=== PATIENT | female | born 1995 | race Caucasian/White ===

== ENCOUNTER 2017-09-12 00:11 | Inpatient (IN) | payer MEDICAID ==
[2017-09-12] MEDS ORDERED: Sodium Chloride 0.9% 10 ML Syringe FLUSH PRN (20:36)
[2017-09-12] MEDS ORDERED: Oxytocin/Lactated Ringers 10 UNIT/1,000 ML BAG IV SCH (20:45)
[2017-09-12] MEDS: Misoprostol 100 MCG Tab VAG SCH (21:47)
[2017-09-13] MEDS ORDERED: Oxytocin/Lactated Ringers 20 UNIT/1,000 ML BAG IV ONE (02:07)
[2017-09-13] MEDS: Lactated Ringers 1,000 ML IV SCH ×4 (02:22→16:18)
[2017-09-13] MEDS ORDERED: ePHEDrine 50 MG/ML SDV IVPUSH PRN (08:26)
[2017-09-13] MEDS ORDERED: fentaNYL 100 MCG/2 ML SDV EPIDUR PRN (08:26)
[2017-09-13] MEDS ORDERED: diphenhydrAMINE 50 MG/ML SDV IVPUSH PRN (08:26)
[2017-09-13] MEDS ORDERED: Bupivacaine/fentaNYL/NS 100 ML Bag EPIDUR SCH (08:30)
--- NOTE | 2017-09-13 08:35 | PCM.LDHP ---
L&D History of Present Illness - General Date of Service: 09/13/17 Admit Problem/Dx: Patient Status Order with Admit Dx/Problem 09/12/17 20:36 Patient Status [ADT] Routine Admission Diagnosis/Problem Admission Diagnosis/Problem Source of Information: Patient History Limitations: Reports: No Limitations - History of Present Illness Introduction:: 22-year-old 000 VAMSI 09/08/17 at estimated gestational age of 40 weeks and 4 days yesterday 40 weeks and 5 days today. Patient presented to labor and delivery last evening for induction. Received 1 dose of Cytotec. Pitocin was started at approximately 230. Spontaneous rupture of membranes occurred with examination at approximately 0400 hrs. clear fluid. Group B strep is negative. Patient quit smoking in May. Blood type A positive antibody screen negative, hemoglobin hematocrit on 1714.2 and 40.6. Platelets 246,000. Rubella immune. Serology nonreactive. Urine culture showed greater than 100,000 colony count Escherichia coli. Patient treated. Hepatitis B surface antigen negative, HIV negative. Chlamydia negative and gonorrhea negative. One hour OB glucose screen 151 on 06/11/17. One hour OB glucose screen fasting 94 , 1 hour 194, two-hour 149, 3 hour 124. Hemoglobin hematocrit on 06/11/1810.9/ 34.5 with platelets 201,000. Group B strep negative on 08/09/17. LMP VAMSI (LMP uncertain) was 08/31/17. Ultrasound obtained on 03/05/17 at 13 weeks and 2 days showed single intrauterine fetus VAMSI 09/08/17. Plan induction and delivery. Blood pressure 142/76 this morning at 8:30 approximately. Improves with: Reports: None Worsens with: Reports: None Associated Symptoms: Reports: N - Related Data Allergies/Adverse Reactions: Allergies Allergy/AdvReac Type Severity Reaction Status Date / Time No Known Allergies Allergy Verified 09/12/17 20:35 Past Medical History - Past Health History Medical/Surgical History: Denies Medical/Surgical History - Infectious Disease History Infectious Disease History: Reports: Chicken Pox - Past Surgical History Head Surgeries/Procedures: Reports: None Social & Family History - Family History Family Medical History: Noncontributory - Tobacco Use Smoking Status *Q: Former Smoker Used Tobacco, but Quit: Yes Month/Year Tobacco Last Used: May 2017 Second Hand Smoke Exposure: No - Caffeine Use Caffeine Use: Reports: Soda - Recreational Drug Use Recreational Drug Use: No H&P Review of Systems - Review of Systems: Review Of Systems: See Below General: Reports: No Symptoms HEENT: Reports: No Symptoms Pulmonary: Reports: No Symptoms Cardiovascular: Reports: No Symptoms Gastrointestinal: Reports: No Symptoms Genitourinary: Reports: No Symptoms Musculoskeletal: Reports: No Symptoms Skin: Reports: No Symptoms Psychiatric: Reports: No Symptoms Neurological: Reports: No Symptoms Hematologic/Lymphatic: Reports: No Symptoms Immunologic: Reports: No Symptoms L&D Exam - Exam Exam: See Below - Vital Signs Vital Signs: Last Vital Signs Temp 97.4 F 09/12/17 21:15 Pulse 84 09/12/17 23:01 Resp 17 09/12/17 21:15 BP 86/62 L 09/12/17 23:01 Pulse Ox 98 09/12/17 21:15 Weight: 239 lb - OB Specific Fundal Height In cm: 42 Movement: Active Heart Tones: Present Heart Tones per Min: 135 Heart Rate (FHR) Variability: Moderate (6-25 bmp) Presentation: Vertex - Saldivar Score Saldivar Score Cervix Position: Posterior Saldivar Score Consistency: Soft Saldivar Score Effacement: 31-50% Saldivar Score Dilation: 1-2 cm Saldivar Score Infant's Station: -1 ,0 Saldivar Score Total: 6 - Exam General: Alert, Oriented HEENT: Conjunctiva Clear, Mucosa Moist & Wiseman, PERRLA Neck: Supple, Trachea Midline Lungs: Clear to Auscultation, Normal Respiratory Effort Cardiovascular: Regular Rate, Regular Rhythm GI/Abdominal Exam: Normal Bowel Sounds, Soft Genitourinary: Normal external exam Extremities: Normal Inspection, Normal Range of Motion, Non-Tender, No Pedal Edema, Normal Capillary Refill Skin: Warm, Dry, Intact Neurological: Reflexes Equal Bilateral Psychiatric: Alert, Normal Affect, Normal Mood - Patient Data Lab Results Last 24 hrs: Laboratory Results - last 24 hr 09/12/17 09/12/17 Range/Units 21:04 21:04 WBC 10.46 H (3.98-10.04) K/mm3 RBC 4.45 (3.98-5.22) M/mm3 Hgb 13.6 (11.2-15.7) gm/L Hct 39.5 (34.1-44.9) % MCV 88.8 (79.4-94.8) fl MCH 30.6 (25.6-32.2) pg MCHC 34.4 (32.2-35.5) g/dl RDW Std Deviation 43.1 (36.4-46.3) fL Plt Count 136 L (182-369) K/mm3 MPV 12.2 (9.4-12.3) fl Neut % (Auto) 72.9 H (34.0-71.1) % Lymph % (Auto) 17.9 L (19.3-51.7) % [place] % (Auto) 7.8 (4.7-12.5) % Eos % (Auto) 1.1 (0.7-5.8) Baso % (Auto) 0.1 (0.1-1.2) % Neut # (Auto) 7.62 H (1.56-6.13) K/mm3 Lymph # (Auto) 1.87 (1.18-3.74) K/mm3 [place] # (Auto) 0.82 H (0.24-0.36) K/mm3 Eos # (Auto) 0.12 (0.04-0.36) K/mm3 Baso # (Auto) 0.01 (0.01-0.08) K/mm3 Blood Type A POSITIVE Gel Antibody Screen Negative Result Diagrams: 09/12/17 21:04 - Problem List (1) 41 weeks gestation of SNOMED Code(s): 02027165 ICD Code: Z3A.41 - 41 WEEKS GESTATION OF Status: Acute Current Visit: Yes Problem List Initiated/Reviewed/Updated: No Orders Last 24hrs: Active Orders 24 hr Category Date Time Status Patient Status [ADT] Routine ADT 09/12/17 20:36 Active Communication Order [RC] ASDIRECTED Care 09/12/17 20:36 Inactive Communication Order [RC] ASDIRECTED Care 09/12/17 20:36 Inactive Communication Order [RC] ASDIRECTED Care 09/12/17 20:36 Inactive Communication Order [RC] ASDIRECTED Care 09/12/17 20:42 Active Communication Order [RC] ASDIRECTED Care 09/13/17 08:26 Active Cooling Warming Measures [RC] ASDIRECTED Care 09/13/17 08:26 Active Monitoring [RC] INTERMITTENT Care 09/12/17 20:36 Active Notify Provider [RC] ASDIRECTED Care 09/12/17 20:36 Inactive Notify Provider [RC] ASDIRECTED Care 09/12/17 20:42 Active Notify Provider [RC] ASDIRECTED Care 09/13/17 08:26 Active Oxygen Therapy [RC] ASDIRECTED Care 09/13/17 08:26 Active Peripheral IV Care [RC] . DIRECTED Care 09/12/17 20:38 Active Pulse Oximetry [RC] ASDIRECTED Care 09/13/17 08:26 Active Vaginal Exam [RC] ASDIRECTED Care 09/12/17 20:36 Inactive Verify Patient Consent Obtain [RC] ASDIRECTED Care 09/13/17 08:26 Active Vital Signs [RC] ASDIRECTED Care 09/12/17 20:36 Active Vital Signs [RC] Q1H Care 09/13/17 08:26 Active Regular Diet [DIET] Diet 09/13/17 Breakfast Active RAPID PLASMA REAGIN,RPR [CHEM] Stat Lab 09/12/17 21:04 Received Bupivacaine/fentaNYL/NS [fentaNYL/Bupivacaine/NS 2 MCG- Med 09/13/17 08:30 Active 0.125% 100 ML] 100 ml EPIDUR ASDIRECTED Lactated Ringers [Ringers, Lactated] 1,000 ml Med 09/12/17 20:45 Active IV ASDIRECTED Misoprostol [Cytotec] Med 09/12/17 20:45 Active 25 mcg VAG Q3H Oxytocin [Pitocin] 20 unit Med 09/13/17 02:15 Active Lactated Ringers [Ringers, Lactated] 1,000 ml IV TITRATE Sodium Chloride 0.9% [Saline Flush] Med 09/12/17 20:36 Active 10 ml FLUSH ASDIRECTED PRN diphenhydrAMINE [Benadryl] Med 09/13/17 08:26 Active 25 mg IVPUSH Q6H PRN ePHEDrine [ePHEDrine Sulfate] Med 09/13/17 08:26 Active 5 mg IVPUSH ASDIRECTED PRN fentaNYL [Sublimaze] Med 09/13/17 08:26 Ordered 100 mcg EPIDUR Q3H PRN Peripheral IV Insertion Adult [OM.PC] Routine Oth 09/12/17 20:36 Ordered Medication Orders Diphenhydramine HCl (Benadryl) 25 mg IVPUSH Q6H PRN PRN Reason: Itching Ephedrine Sulfate (Ephedrine Sulfate) 5 mg IVPUSH ASDIRECTED PRN PRN Reason: HYPOTENTSION Fentanyl (Sublimaze) 100 mcg EPIDUR Q3H PRN PRN Reason: Pain Fentanyl/Bupivacaine HCl (Fentanyl/Bupivacaine/Ns 2 Mcg-0.125% 100 Ml) 100 ml EPIDUR ASDIRECTED [facility] Lactated Ringer's (Ringers, Lactated) 1,000 mls @ 40 mls/hr IV ASDIRECTED CUCA Last Admin: 09/13/17 02:22 Dose: 40 mls/hr Oxytocin 20 unit/ Lactated (Ringer's) 1,002 mls @ 6.01 mls/hr IV TITRATE CUCA; Protocol Misoprostol (Cytotec) 25 mcg VAG Q3H CUCA Last Admin: 09/12/17 21:47 Dose: 25 mcg Sodium Chloride (Saline Flush) 10 ml FLUSH ASDIRECTED PRN PRN Reason: Keep Vein Open Assessment/Plan Comment:: Plan induction and delivery.
[2017-09-13] MEDS: Misoprostol 100 MCG Tab VAG SCH ×2 (09:17→09:18)
--- NOTE | 2017-09-13 12:37 | PCM.PREANE ---
Preanesthetic Assessment - Anesthesia/Transfusion/Family Hx Anesthesia History: No Prior Anesthesia Family History of Anesthesia Reaction: No Transfusion History: No Prior Transfusion(s) - Review of Systems General: No Symptoms Pulmonary: No Symptoms Cardiovascular: No Symptoms Gastrointestinal: Abdominal Pain (contractions) Neurological: No Symptoms Other: Reports: None - Physical Assessment Pulse: 84 O2 Sat by Pulse Oximetry: 96 Respiratory Rate: 17 Blood Pressure: 138/75 Temperature: 36.3 C Vital Signs: Last Vital Signs Temp 36.3 C 09/12/17 21:15 Pulse 84 09/13/17 09:03 Resp 17 09/12/17 21:15 BP 138/75 09/13/17 07:41 Pulse Ox 96 09/13/17 05:30 Height: 1.63 m Weight: 108.409 kg ASA Class: 2 Mental Status: Alert & Oriented x3 Airway Class: Mallampati = 2 Dentition: Reports: Normal Dentition Thyro-Mental Finger Breadths: 2 Mouth Opening Finger Breadths: 2 ROM/Head Extension: Full Lungs: Clear to Auscultation, Normal Respiratory Effort Cardiovascular: Regular Rate, Regular Rhythm - Lab Values: Laboratory Last Values WBC 10.46 K/mm3 (3.98-10.04) H 09/12/17 21:04 RBC 4.45 M/mm3 (3.98-5.22) 09/12/17 21:04 Hgb 13.6 gm/L (11.2-15.7) 09/12/17 21:04 Hct 39.5 % (34.1-44.9) 09/12/17 21:04 MCV 88.8 fl (79.4-94.8) 09/12/17 21:04 MCH 30.6 pg (25.6-32.2) 09/12/17 21:04 MCHC 34.4 g/dl (32.2-35.5) 09/12/17 21:04 RDW Std Deviation 43.1 fL (36.4-46.3) 09/12/17 21:04 Plt Count 136 K/mm3 (182-369) L 09/12/17 21:04 MPV 12.2 fl (9.4-12.3) 09/12/17 21:04 Neut % (Auto) 72.9 % (34.0-71.1) H 09/12/17 21:04 Lymph % (Auto) 17.9 % (19.3-51.7) L 09/12/17 21:04 [place] % (Auto) 7.8 % (4.7-12.5) 09/12/17 21:04 Eos % (Auto) 1.1 (0.7-5.8) 09/12/17 21:04 Baso % (Auto) 0.1 % (0.1-1.2) 09/12/17 21:04 Neut # (Auto) 7.62 K/mm3 (1.56-6.13) H 09/12/17 21:04 Lymph # (Auto) 1.87 K/mm3 (1.18-3.74) 09/12/17 21:04 [place] # (Auto) 0.82 K/mm3 (0.24-0.36) H 09/12/17 21:04 Eos # (Auto) 0.12 K/mm3 (0.04-0.36) 09/12/17 21:04 Baso # (Auto) 0.01 K/mm3 (0.01-0.08) 09/12/17 21:04 Blood Type A POSITIVE 09/12/17 21:04 Gel Antibody Screen Negative 09/12/17 21:04 - Allergies Allergies/Adverse Reactions: Allergies Allergy/AdvReac Type Severity Reaction Status Date / Time No Known Allergies Allergy Verified 09/12/17 20:35 - Anesthesia Plan Pre-Op Medication Ordered: None - Acknowledgements Anesthesia Type Planned: Epidural Pt an Appropriate Candidate for the Planned Anesthesia: Yes Alternatives and Risks of Anesthesia Discussed w Pt/Guardian: Yes Pt/Guardian Understands and Agrees with Anesthesia Plan: Yes PreAnesthesia Questionnaire - Past Health History Medical/Surgical History: Denies Medical/Surgical History Gastrointestinal History: Reports: GERD - Infectious Disease History Infectious Disease History: Reports: Chicken Pox - Past Surgical History Head Surgeries/Procedures: Reports: None - SUBSTANCE USE Smoking Status *Q: Former Smoker Tobacco Use Within Last Twelve Months: Cigarettes Second Hand Smoke Exposure: No Recreational Drug Use History: No - CURRENT (IN HOUSE) MEDS Current Meds: Current Medications Diphenhydramine HCl (Benadryl) 25 mg IVPUSH Q6H PRN PRN Reason: Itching Ephedrine Sulfate (Ephedrine Sulfate) 5 mg IVPUSH ASDIRECTED PRN PRN Reason: HYPOTENTSION Fentanyl (Sublimaze) 100 mcg EPIDUR Q3H PRN PRN Reason: Pain Last Admin: 09/13/17 12:30 Dose: 100 mcg Fentanyl/Bupivacaine HCl (Fentanyl/Bupivacaine/Ns 2 Mcg-0.125% 100 Ml) 100 ml EPIDUR ASDIRECTED [facility] Last Admin: 09/13/17 12:31 Dose: 100 ml Lactated Ringer's (Ringers, Lactated) 1,000 mls @ 40 mls/hr IV ASDIRECTED CUCA Last Admin: 09/13/17 11:29 Dose: 40 mls/hr Oxytocin 20 unit/ Lactated (Ringer's) 1,002 mls @ 6.01 mls/hr IV TITRATE [facility]; Protocol Last Titration: 09/13/17 10:45 Dose: 12 munits/min, 36.07 mls/hr Sodium Chloride (Saline Flush) 10 ml FLUSH ASDIRECTED PRN PRN Reason: Keep Vein Open Discontinued Medications Oxytocin/Lactated Ringer's (Pitocin In Lr 10 Units/1,000 Ml) 10 unit in 1,000 mls @ 12 mls/hr IV TITRATE CUCA; Protocol Oxytocin/Lactated Ringer's (Pitocin In Lr 20 Units/1,000 Ml) Confirm Administered Dose 20 unit in 1,000 mls @ as directed IV .STK-MED ONE Stop: 09/13/17 02:08 Last Admin: 09/13/17 02:22 Dose: 2 mls/hr Misoprostol (Cytotec) 25 mcg VAG Q3H CUCA Last Admin: 09/13/17 09:18 Dose: Not Given
--- NOTE | 2017-09-13 16:40 | PCM.SN ---
- Free Text/Narrative Note: 09/13/2017 1635 Cervix 6 cm, 90% effaced, midposition, soft, vertex 0 to -1 station. Cat I FHR. UAC cath placed without difficulty. Continue and increase Pitocin if indicated by UAC. Epidural working well.
[2017-09-13] MEDS ORDERED: ceFAZolin 2 GM in Premix Bag 1 BAG IV ONE (23:00)
[2017-09-13] MEDS ORDERED: Sodium Chloride 0.9% 10 ML Syringe FLUSH PRN (23:27)
[2017-09-13] MEDS ORDERED: Metoclopramide 10 MG/2 ML SDV IVPUSH ONE (23:27)
[2017-09-13] MEDS ORDERED: Citric Acid/Sodium Citrate Solution 30 ML Cup PO ONE (23:27)
[2017-09-13] MEDS ORDERED: Lactated Ringers 1,000 ML IV SCH (23:30)
[2017-09-13] MEDS ORDERED: Oxytocin/Lactated Ringers 10 UNIT/1,000 ML BAG IV SCH (23:30)
--- NOTE | 2017-09-13 23:30 | PCM.SN ---
- Free Text/Narrative Note: 09/13/2017 2325 Cervix has remained 7 cm dilated 90% effaced since 1900 hrs. Patient has been augmented with Pitocin and having adequate contractions confirmed by uterine activity catheter. Station remains -1 With caput at 0 station. Estimated weight 8-1/2 pounds. Will proceed with section. Alternatives of treatment vaginal delivery versus section discussed with patient, father of the baby, and patient's mother. All in agreement with proceeding with section.
[2017-09-13] MEDS ORDERED: ceFAZolin 1 GM Vial ONE (23:37)
[2017-09-13] MEDS ORDERED: Phenylephrine 1% 10 MG/ML SDV ONE (23:37)
[2017-09-13] MEDS ORDERED: Morphine PF 10 MG/10 ML SDV ONE (23:38)
[2017-09-13] MEDS ORDERED: Lidocaine 2% with EPINEPHrine 1:200,000 20 ML SDV ONE (23:40)
[2017-09-13] MEDS ORDERED: Bupivacaine 0.5% 30 ML SDV ONE (23:42)
[2017-09-13] MEDS ORDERED: Citric Acid/Sodium Citrate Solution 30 ML Cup ONE (23:46)
[2017-09-13] MEDS ORDERED: Metoclopramide 10 MG/2 ML SDV ONE (23:46)
[2017-09-14] MEDS ORDERED: Oxytocin 10 Units/1 ML SDV ONE (00:07)
[2017-09-14] MEDS ORDERED: Lactated Ringers 1,000 ML ONE ×2 (00:07)
[2017-09-14] MEDS ORDERED: ePHEDrine/Normal Saline 25 MG/5 ML Syringe ONE (00:16)
[2017-09-14] MEDS ORDERED: Phenylephrine/Normal Saline 100 MCG/ML 10 ML Syringe ONE (00:18)
[2017-09-14] MEDS ORDERED: fentaNYL 100 MCG/2 ML SDV ONE (00:19)
[2017-09-14] MEDS ORDERED: Esmolol 100 MG/10 ML SDV ONE (00:23)
[2017-09-14] MEDS ORDERED: Ketorolac 30 MG/ML SDV ONE (00:33)
--- NOTE | 2017-09-14 00:57 | PCM.POSTAN ---
POST ANESTHESIA ASSESSMENT - MENTAL STATUS Mental Status: Alert, Oriented - VITAL SIGNS Pulse Rate: 138 SaO2: 99 Resp Rate: 29 Blood Pressure: 114/97 Temperature: 38.3 C - RESPIRATORY Respiratory Status: Airway Patent, O2 Saturation Stable, Supplemental Oxygen, Elevated Respiratory Rate - CARDIOVASCULAR CV Status: Blood Pressure Stable, Elevated Pulse Rate - GASTROINTESTINAL GI Status: No Symptoms - PAIN Pain Score: 0 - POST OP HYDRATION Hydration Status: Adequate & Stable - OBSERVATIONS Free Text/Narrative:: no anesthesia complications noted
[2017-09-14] MEDS ORDERED: Bupivacaine 0.25% 10 ML SDV ONE (01:00)
--- NOTE | 2017-09-14 01:08 | PCM.OPNOTE ---
- General Post-Op/Procedure Note Date of Surgery/Procedure: 09/14/17 Operative Procedure(s): Low segment transverse Pre Op Diagnosis: Failure to progress Post-Op Diagnosis: Same plus cord around both lower extremities Anesthesia Technique: Epidural Primary Surgeon: Ernesto Adams Secondary Surgeon: Becka Acevedo Anesthesia Provider: Melchor Breen Reason Wind Energy Mechanic Was Necessary: Retraction, decrease comorbidity and co-mortality Role of Wind Energy Mechanic: Retraction, decrease comorbidity and co-mortality Fluid Replacement, Intraop: 2,500 Output, Urine Amount: 900 EBL in mLs: 1,200 Drain/Tube Comments:: Brown Complications: None Condition: Good Free Text/Narrative:: Intake & Output 09/13/17 09/13/17 09/14/17 14:59 22:59 06:59 Intake Total 420 Balance 420 Patient was Transported to operating room and placed under epidural anesthesia in the supine position with wedge under the right hip and right flank. SCDs in place and functioning prior surgery. Ancef 2 g given intravenously prior surgery. Timeout performed confirming name date of and procedure as section. Patient was prepared and draped in a sterile fashion. C drape was utilized. Adequate level of anesthesia was confirmed patient's was brought to the operating room. A Pfannenstiel incision was made and care was sharp section to into the anterior fascia peritoneal cavity was entered without difficulty. Bladder flap created pushed caudad. Low segment transverse C- section was performed. Amnionic fluid clear upon entry into the amnionic cavity. The liveborn male was delivered at 0011 hours on 09/14/17Sunday. Weight 8 lbs. 13 oz. Apgars 9/9. Cord was wrapped around both lower extremities tightly. Dr. Ochoa broadcast supervisor attended . Cord blood collected from three-vessel cord. Placenta removed manually inspected and discarded. Endometrial cavity inspected no additional placental remnants or membranes. Sponge needle pack asthma sharp count correct times one the uterine incision was closed with 2 layers. First layer 0 Monocryl running locking suture second layer horizontal imbricating suture of modified Lembert type. Both tubes and ovaries were normal clot screen from the gutters and cul-de-sac uterus replaced into the abdominal cavity sponge needle pack asthma sharp count correct 2 and the abdominal cavity was closed with #1 PDS. 3 bleeders in the subcutaneous tissue suture ligated with 0 Monocryl [id number] suture. The anterior and posterior subcutaneoustissue approximated with 3 interrupted sutures of 0 Monocryl. Skin was closed with 3-0 Monocryl Spencer needle. Dermabond Preneo applied. Clots were cleaned from the vagina at the end of the procedure. Patient was transported postanesthesia care unit in satisfactory condition. No blood transfusions given.
[2017-09-14] MEDS ORDERED: diphenhydrAMINE 50 MG/ML SDV IVPUSH PRN (03:08)
[2017-09-14] MEDS ORDERED: Naloxone 0.4 MG/ML SDV IVPUSH PRN (03:08)
[2017-09-14] MEDS ORDERED: Acetaminophen 325 MG Tab PO PRN (03:08)
[2017-09-14] MEDS ORDERED: Witch Hazel Medicated Pads 100/Jar TOP PRN (03:08)
[2017-09-14] MEDS ORDERED: ePHEDrine 50 MG/ML SDV IVPUSH PRN (03:08)
[2017-09-14] MEDS ORDERED: Lanolin 100% Cream 7 GM Tube TOP PRN (03:08)
[2017-09-14] MEDS ORDERED: Sodium Chloride 0.9% 10 ML Syringe FLUSH PRN (03:08)
[2017-09-14] MEDS ORDERED: Dextrose 5%-Lactated Ringers 1,000 ML IV SCH (03:08)
[2017-09-14] MEDS ORDERED: Ondansetron 4 MG/2 ML SDV IV PRN (03:08)
[2017-09-14] MEDS: Lactated Ringers 1,000 ML IV SCH (05:05)
[2017-09-14] MEDS: Ketorolac 30 MG/ML SDV IVPUSH SCH ×3 (06:27→18:49)
--- NOTE | 2017-09-14 08:29 | PCM.SN ---
- Free Text/Narrative Note: DOS/DODAfebrile, incision normal. Uterus firm at U-2, no leg cramping. Hgb 9.5 down from 13.6. Will ambulate later today. D/C silvia. Dr Tenorio to assume call.
[2017-09-14] MEDS: Simethicone 80 MG Tab.Chew PO SCH ×4 (09:09→22:17)
[2017-09-14] MEDS: Acetaminophen/oxyCODONE 325-5 MG Tab PO PRN (17:18)
[2017-09-14] MEDS: Docusate Sodium 100 MG Cap PO PRN (22:15)
[2017-09-15] MEDS: Acetaminophen/oxyCODONE 325-5 MG Tab PO PRN ×4 (00:43→19:38)
--- NOTE | 2017-09-15 09:08 | PCM.PNPP ---
- General Info Date of Service: 09/15/17 Functional Status: Reports: Pain Controlled, Tolerating Diet, Ambulating, Urinating - Review of Systems General: Reports: No Symptoms Pulmonary: Reports: No Symptoms Cardiovascular: Reports: No Symptoms Gastrointestinal: Reports: No Symptoms Genitourinary: Reports: No Symptoms Musculoskeletal: Reports: No Symptoms Neurological: Reports: No Symptoms - Patient Data Vital Signs - Most Recent: Last Vital Signs Temp 36.9 C 09/15/17 03:52 Pulse 111 H 09/15/17 03:52 Resp 16 09/15/17 03:52 BP 117/65 09/15/17 03:52 Pulse Ox 97 09/15/17 03:52 Weight - Most Recent: 108.409 kg I&O - Last 24 Hours: Intake & Output 09/14/17 09/15/17 09/15/17 22:59 06:59 14:59 Output Total 100 800 Balance -100 -800 Med Orders - Current: Current Medications Acetaminophen (Tylenol) 650 mg PO Q4H PRN PRN Reason: mild pain or fever Diphenhydramine HCl (Benadryl) 25 mg IVPUSH Q6H PRN PRN Reason: Itching or Nausea Docusate Sodium (Colace) 100 mg PO Q12H PRN PRN Reason: Constipation Last Admin: 09/14/17 22:15 Dose: 100 mg Emollient Ointment (Lansinoh Hpa) 0 gm TOP ASDIRECTED PRN PRN Reason: Sore Nipples Last Admin: 09/14/17 22:17 Dose: 7 gram Ephedrine Sulfate (Ephedrine Sulfate) 5 mg IVPUSH SEECOMMENT PRN PRN Reason: Other Ibuprofen (Motrin) 600 mg PO Q6H PRN PRN Reason: mild pain or fever Naloxone HCl (Narcan) 0.1 mg IVPUSH SEECOMMENT PRN PRN Reason: Respiratory Depression Ondansetron HCl (Zofran) 4 mg IV Q4H PRN PRN Reason: Nausea/Vomiting Oxycodone/Acetaminophen (Percocet 325-5 Mg) 2 tab PO Q4H PRN PRN Reason: Pain (moderate 4-6) Last Admin: 09/15/17 06:52 Dose: 2 tab Simethicone (Simethicone) 160 mg PO QID CUCA Last Admin: 09/14/17 22:17 Dose: 160 mg Sodium Chloride (Saline Flush) 10 ml FLUSH ASDIRECTED PRN PRN Reason: Keep Vein Open Petar Guerra (Tucks) 1 pad TOP ASDIRECTED PRN PRN Reason: Perineal Comfort Measure Discontinued Medications Bupivacaine HCl (Marcaine 0.5%) Confirm Administered Dose 30 ml .ROUTE .STK-MED ONE Stop: 09/13/17 23:43 Last Admin: 09/14/17 00:05 Dose: 20 ml Bupivacaine HCl (Sensorcaine-Mpf 0.25%) 10 ml .ROUTE .STK-MED ONE Stop: 09/14/17 01:01 Cefazolin Sodium (Ancef) Confirm Administered Dose 2 gm .ROUTE .STK-MED ONE Stop: 09/13/17 23:38 Citric Acid/Sodium Citrate (Bicitra Solution) 30 ml PO ONETIME ONE Stop: 09/13/17 23:28 Last Admin: 09/13/17 23:45 Dose: 30 ml Citric Acid/Sodium Citrate (Bicitra Solution) Confirm Administered Dose 30 ml .ROUTE .STK-MED ONE Stop: 09/13/17 23:47 Last Admin: 09/14/17 05:11 Dose: Not Given Diphenhydramine HCl (Benadryl) 25 mg IVPUSH Q6H PRN PRN Reason: Itching Ephedrine Sulfate (Ephedrine Sulfate) 5 mg IVPUSH ASDIRECTED PRN PRN Reason: HYPOTENTSION Ephedrine Sulfate (Ephedrine In Ns) Confirm Administered Dose 25 mg .ROUTE .STK- MED ONE Stop: 09/14/17 00:17 Esmolol HCl (Esmolol) Confirm Administered Dose 100 mg .ROUTE .STK-MED ONE Stop: 09/14/17 00:24 Fentanyl (Sublimaze) 100 mcg EPIDUR Q3H PRN PRN Reason: Pain Last Admin: 09/13/17 12:30 Dose: 100 mcg Fentanyl (Sublimaze) Confirm Administered Dose 100 mcg .ROUTE .STK-MED ONE Stop: 09/14/17 00:20 Fentanyl/Bupivacaine HCl (Fentanyl/Bupivacaine/Ns 2 Mcg-0.125% 100 Ml) 100 ml EPIDUR ASDIRECTED CUCA Last Admin: 09/13/17 12:31 Dose: 100 ml Lactated Ringer's (Ringers, Lactated) 1,000 mls @ 40 mls/hr IV ASDIRECTED CUCA Last Admin: 09/14/17 05:05 Dose: 500 mls/hr Oxytocin/Lactated Ringer's (Pitocin In Lr 10 Units/1,000 Ml) 10 unit in 1,000 mls @ 12 mls/hr IV TITRATE [facility]; Protocol Oxytocin 20 unit/ Lactated (Ringer's) 1,002 mls @ 6.01 mls/hr IV TITRATE [facility]CA; Protocol Last Titration: 09/13/17 23:25 Dose: 0 munits/min, 0 mls/hr Oxytocin/Lactated Ringer's (Pitocin In Lr 20 Units/1,000 Ml) Confirm Administered Dose 20 unit in 1,000 mls @ as directed IV .STK-MED ONE Stop: 09/13/17 02:08 Last Admin: 09/13/17 02:22 Dose: 2 mls/hr Cefazolin Sodium/Dextrose 2 gm (/ Premix) 50 mls @ 100 mls/hr IV ONETIME ONE Stop: 09/13/17 23:29 Lactated Ringer's (Ringers, Lactated) 1,000 mls @ 125 mls/hr IV ASDIRECTED CUCA Last Admin: 09/14/17 01:50 Dose: 125 mls/hr Oxytocin/Lactated Ringer's (Pitocin In Lr 10 Units/1,000 Ml) 10 unit in 1,000 mls @ 100 mls/hr IV ASDIRECTED [facility]CA Lactated Ringer's (Ringers, Lactated) Confirm Administered Dose 1,000 mls @ as directed .ROUTE .STK-MED ONE Stop: 09/14/17 00:08 Lactated Ringer's (Ringers, Lactated) Confirm Administered Dose 1,000 mls @ as directed .ROUTE .STK-MED ONE Stop: 09/14/17 00:08 Dextrose/Lactated Ringer's (Dextrose 5%-Lactated Ringers) 1,000 mls @ 125 mls/ hr IV ASDIRECTED [facility] Stop: 09/14/17 11:07 Last Admin: 09/14/17 05:06 Dose: 125 mls/hr Ketorolac Tromethamine (Toradol) Confirm Administered Dose 30 mg .ROUTE .STK- MED ONE Stop: 09/14/17 00:34 Ketorolac Tromethamine (Toradol) 30 mg IVPUSH Q6H [facility] Stop: 09/14/17 18:01 Last Admin: 09/14/17 18:49 Dose: 30 mg Lidocaine/Epinephrine (Xylocaine-Mpf 2%-Epi 1:200,000) Confirm Administered Dose 20 ml .ROUTE .STK-MED ONE Stop: 09/13/17 23:41 Metoclopramide HCl (Reglan) 10 mg IVPUSH ONETIME ONE Stop: 09/13/17 23:28 Last Admin: 09/13/17 23:45 Dose: 10 mg Metoclopramide HCl (Reglan) Confirm Administered Dose 10 mg .ROUTE .STK-MED ONE Stop: 09/13/17 23:47 Last Admin: 09/14/17 05:10 Dose: Not Given Misoprostol (Cytotec) 25 mcg VAG Q3H CUCA Last Admin: 09/13/17 09:18 Dose: Not Given Morphine Sulfate (Duramorph Pf) Confirm Administered Dose 10 mg .ROUTE .STK-MED ONE Stop: 09/13/17 23:39 Oxytocin (Pitocin) Confirm Administered Dose 10 unit .ROUTE .STK-MED ONE Stop: 09/14/17 00:08 Phenylephrine HCl (Alverto-Synephrine) Confirm Administered Dose 10 mg .ROUTE .STK- MED ONE Stop: 09/13/17 23:38 Phenylephrine HCl (Phenylephrine In Ns 100 Mcg/Ml) Confirm Administered Dose 1 mg .ROUTE .STK-MED ONE Stop: 09/14/17 00:19 Sodium Chloride (Saline Flush) 10 ml FLUSH ASDIRECTED PRN PRN Reason: Keep Vein Open Sodium Chloride (Saline Flush) 10 ml FLUSH ASDIRECTED PRN PRN Reason: Keep Vein Open - Infant Interaction Disposition, : [place] in Room with Family Infant Interaction: Holding Feeding: Attempted ; Nursed Fair/Poor Support Person: Mother, Significant Other - Recovery Exam Fundal Tone: Firm Fundal Level: At Umbilicus Fundal Placement: Midline Lochia Amount: Small Lochia Color: Rubra/Red Perineum Description: Intact, Minimal Bruising/Swelling Episiotomy/Laceration: None Bladder Status: Voiding Urinary Elimination: Voided - Exam General: Alert, Oriented, Cooperative Lungs: Clear to Auscultation, Normal Respiratory Effort Cardiovascular: Regular Rhythm, Tachycardia GI/Abdominal Exam: Soft, Tender (appropriate post op) Extremities: Normal Inspection Skin: Warm, Dry, Intact Wound/Incisions: Healing Well, No Drainage - Problem List & Annotations (1) S/P SNOMED Code(s): 931647313, 213155317 Code(s): Z98.891 - HISTORY OF UTERINE SCAR FROM PREVIOUS SURGERY Status: Acute Current Visit: Yes (2) 41 weeks gestation of SNOMED Code(s): 76895282 Code(s): Z3A.41 - 41 WEEKS GESTATION OF Status: Acute Current Visit: Yes (3) Failure to progress in labor, delivered, current hospitalization SNOMED Code(s): 741161727 Code(s): O62.2 - OTHER UTERINE INERTIA Status: Acute Current Visit: Yes - Problem List Review Problem List Initiated/Reviewed/Updated: Yes - Assessment Assessment:: 22 y/o G1 now P1001 POD#1 from [facility] at 40 6/7 wks gestation for FTP in 2nd stage - Plan Plan:: S/p PLTCS * Routine cares * Encourage breast feeding * Discharge home in 1-2 days
[2017-09-15] MEDS: Simethicone 80 MG Tab.Chew PO SCH ×5 (10:19→23:04)
[2017-09-15] MEDS: Docusate Sodium 100 MG Cap PO PRN ×2 (10:31→23:04)
[2017-09-15] MEDS: Ibuprofen 600 MG Tab PO PRN ×2 (10:31→17:54)
--- NOTE | 2017-09-15 12:25 | PCM48HPAN ---
Post Anesthesia Note - EVALUATION WITHIN 48HRS OF ANESTHETIC Vital Signs in Normal Range: Yes Patient Participated in Evaluation: Yes Respiratory Function Stable: Yes Airway Patent: Yes Cardiovascular Function Stable: Yes Hydration Status Stable: Yes Pain Control Satisfactory: Yes Nausea and Vomiting Control Satisfactory: Yes Mental Status Recovered: Yes
[2017-09-16] MEDS: Acetaminophen/oxyCODONE 325-5 MG Tab PO PRN ×2 (02:42→09:29)
--- NOTE | 2017-09-16 07:21 | PCM.PNPP ---
- General Info Date of Service: 09/16/17 Functional Status: Reports: Pain Controlled, Tolerating Diet, Ambulating, Urinating - Review of Systems General: Reports: No Symptoms Pulmonary: Reports: No Symptoms Cardiovascular: Reports: No Symptoms Gastrointestinal: Reports: No Symptoms Genitourinary: Reports: No Symptoms Musculoskeletal: Reports: No Symptoms Neurological: Reports: No Symptoms - Patient Data Vital Signs - Most Recent: Last Vital Signs Temp 36.7 C 09/16/17 02:46 Pulse 88 09/16/17 02:46 Resp 1 L 09/16/17 02:46 BP 131/77 09/16/17 02:46 Pulse Ox 98 09/16/17 02:46 Weight - Most Recent: 108.409 kg Med Orders - Current: Current Medications Acetaminophen (Tylenol) 650 mg PO Q4H PRN PRN Reason: mild pain or fever Diphenhydramine HCl (Benadryl) 25 mg IVPUSH Q6H PRN PRN Reason: Itching or Nausea Docusate Sodium (Colace) 100 mg PO Q12H PRN PRN Reason: Constipation Last Admin: 09/15/17 23:04 Dose: 100 mg Emollient Ointment (Lansinoh Hpa) 0 gm TOP ASDIRECTED PRN PRN Reason: Sore Nipples Last Admin: 09/14/17 22:17 Dose: 7 gram Ephedrine Sulfate (Ephedrine Sulfate) 5 mg IVPUSH SEECOMMENT PRN PRN Reason: Other Ibuprofen (Motrin) 600 mg PO Q6H PRN PRN Reason: mild pain or fever Last Admin: 09/15/17 17:54 Dose: 600 mg Naloxone HCl (Narcan) 0.1 mg IVPUSH SEECOMMENT PRN PRN Reason: Respiratory Depression Ondansetron HCl (Zofran) 4 mg IV Q4H PRN PRN Reason: Nausea/Vomiting Oxycodone/Acetaminophen (Percocet 325-5 Mg) 2 tab PO Q4H PRN PRN Reason: Pain (moderate 4-6) Last Admin: 09/16/17 02:42 Dose: 2 tab Simethicone (Simethicone) 160 mg PO QID [facility] Last Admin: 09/15/17 23:04 Dose: 160 mg Sodium Chloride (Saline Flush) 10 ml FLUSH ASDIRECTED PRN PRN Reason: Keep Vein Open Witch Mari (Tucks) 1 pad TOP ASDIRECTED PRN PRN Reason: Perineal Comfort Measure Discontinued Medications Bupivacaine HCl (Marcaine 0.5%) Confirm Administered Dose 30 ml .ROUTE .STK-MED ONE Stop: 09/13/17 23:43 Last Admin: 09/14/17 00:05 Dose: 20 ml Bupivacaine HCl (Sensorcaine-Mpf 0.25%) 10 ml .ROUTE .STK-MED ONE Stop: 09/14/17 01:01 Cefazolin Sodium (Ancef) Confirm Administered Dose 2 gm .ROUTE .STK-MED ONE Stop: 09/13/17 23:38 Citric Acid/Sodium Citrate (Bicitra Solution) 30 ml PO ONETIME ONE Stop: 09/13/17 23:28 Last Admin: 09/13/17 23:45 Dose: 30 ml Citric Acid/Sodium Citrate (Bicitra Solution) Confirm Administered Dose 30 ml .ROUTE .STK-MED ONE Stop: 09/13/17 23:47 Last Admin: 09/14/17 05:11 Dose: Not Given Diphenhydramine HCl (Benadryl) 25 mg IVPUSH Q6H PRN PRN Reason: Itching Ephedrine Sulfate (Ephedrine Sulfate) 5 mg IVPUSH ASDIRECTED PRN PRN Reason: HYPOTENTSION Ephedrine Sulfate (Ephedrine In Ns) Confirm Administered Dose 25 mg .ROUTE .STK- MED ONE Stop: 09/14/17 00:17 Esmolol HCl (Esmolol) Confirm Administered Dose 100 mg .ROUTE .STK-MED ONE Stop: 09/14/17 00:24 Fentanyl (Sublimaze) 100 mcg EPIDUR Q3H PRN PRN Reason: Pain Last Admin: 09/13/17 12:30 Dose: 100 mcg Fentanyl (Sublimaze) Confirm Administered Dose 100 mcg .ROUTE .STK-MED ONE Stop: 09/14/17 00:20 Fentanyl/Bupivacaine HCl (Fentanyl/Bupivacaine/Ns 2 Mcg-0.125% 100 Ml) 100 ml EPIDUR ASDIRECTED [facility] Last Admin: 09/13/17 12:31 Dose: 100 ml Lactated Ringer's (Ringers, Lactated) 1,000 mls @ 40 mls/hr IV ASDIRECTED [facility] Last Admin: 09/14/17 05:05 Dose: 500 mls/hr Oxytocin/Lactated Ringer's (Pitocin In Lr 10 Units/1,000 Ml) 10 unit in 1,000 mls @ 12 mls/hr IV TITRATE [facility]; Protocol Oxytocin 20 unit/ Lactated (Ringer's) 1,002 mls @ 6.01 mls/hr IV TITRATE [facility]; Protocol Last Titration: 09/13/17 23:25 Dose: 0 munits/min, 0 mls/hr Oxytocin/Lactated Ringer's (Pitocin In Lr 20 Units/1,000 Ml) Confirm Administered Dose 20 unit in 1,000 mls @ as directed IV .STK-MED ONE Stop: 09/13/17 02:08 Last Admin: 09/13/17 02:22 Dose: 2 mls/hr Cefazolin Sodium/Dextrose 2 gm (/ Premix) 50 mls @ 100 mls/hr IV ONETIME ONE Stop: 09/13/17 23:29 Last Admin: 09/15/17 10:33 Dose: 100 mls/hr Lactated Ringer's (Ringers, Lactated) 1,000 mls @ 125 mls/hr IV ASDIRECTED [facility] Last Admin: 09/14/17 01:50 Dose: 125 mls/hr Oxytocin/Lactated Ringer's (Pitocin In Lr 10 Units/1,000 Ml) 10 unit in 1,000 mls @ 100 mls/hr IV ASDIRECTED [facility] Lactated Ringer's (Ringers, Lactated) Confirm Administered Dose 1,000 mls @ as directed .ROUTE .STK-MED ONE Stop: 09/14/17 00:08 Lactated Ringer's (Ringers, Lactated) Confirm Administered Dose 1,000 mls @ as directed .ROUTE .STK-MED ONE Stop: 09/14/17 00:08 Dextrose/Lactated Ringer's (Dextrose 5%-Lactated Ringers) 1,000 mls @ 125 mls/ hr IV ASDIRECTED [facility] Stop: 09/14/17 11:07 Last Admin: 09/14/17 05:06 Dose: 125 mls/hr Ketorolac Tromethamine (Toradol) Confirm Administered Dose 30 mg .ROUTE .STK- MED ONE Stop: 09/14/17 00:34 Ketorolac Tromethamine (Toradol) 30 mg IVPUSH Q6H [facility] Stop: 09/14/17 18:01 Last Admin: 09/14/17 18:49 Dose: 30 mg Lidocaine/Epinephrine (Xylocaine-Mpf 2%-Epi 1:200,000) Confirm Administered Dose 20 ml .ROUTE .STK-MED ONE Stop: 09/13/17 23:41 Metoclopramide HCl (Reglan) 10 mg IVPUSH ONETIME ONE Stop: 09/13/17 23:28 Last Admin: 09/13/17 23:45 Dose: 10 mg Metoclopramide HCl (Reglan) Confirm Administered Dose 10 mg .ROUTE .STK-MED ONE Stop: 09/13/17 23:47 Last Admin: 09/14/17 05:10 Dose: Not Given Misoprostol (Cytotec) 25 mcg VAG Q3H [facility] Last Admin: 09/13/17 09:18 Dose: Not Given Morphine Sulfate (Duramorph Pf) Confirm Administered Dose 10 mg .ROUTE .STK-MED ONE Stop: 09/13/17 23:39 Oxytocin (Pitocin) Confirm Administered Dose 10 unit .ROUTE .STK-MED ONE Stop: 09/14/17 00:08 Phenylephrine HCl (Alverto-Synephrine) Confirm Administered Dose 10 mg .ROUTE .STK- MED ONE Stop: 09/13/17 23:38 Phenylephrine HCl (Phenylephrine In Ns 100 Mcg/Ml) Confirm Administered Dose 1 mg .ROUTE .STK-MED ONE Stop: 09/14/17 00:19 Sodium Chloride (Saline Flush) 10 ml FLUSH ASDIRECTED PRN PRN Reason: Keep Vein Open Sodium Chloride (Saline Flush) 10 ml FLUSH ASDIRECTED PRN PRN Reason: Keep Vein Open - Infant Interaction Infant Disposition, : in Room with Family Infant Interaction: Holding Infant Feeding: Attempted ; Nursed Fair/Poor Support Person: Mother, Significant Other - Recovery Exam Fundal Tone: Firm Fundal Level: At Umbilicus Fundal Placement: Midline Lochia Amount: Small Lochia Color: Rubra/Red Perineum Description: Intact, Minimal Bruising/Swelling Episiotomy/Laceration: None Bladder Status: Voiding Urinary Elimination: Voided - Exam General: Alert, Oriented, Cooperative Lungs: Clear to Auscultation, Normal Respiratory Effort Cardiovascular: Regular Rate, Regular Rhythm GI/Abdominal Exam: Soft, Non-Tender Extremities: Normal Inspection Skin: Warm, Dry, Intact Wound/Incisions: Healing Well, No Drainage - Problem List & Annotations (1) S/P SNOMED Code(s): 586543603, 581299559 Code(s): Z98.891 - HISTORY OF UTERINE SCAR FROM PREVIOUS SURGERY Status: Acute Current Visit: Yes (2) 41 weeks gestation of SNOMED Code(s): 67259665 Code(s): Z3A.41 - 41 WEEKS GESTATION OF Status: Acute Current Visit: Yes (3) Failure to progress in labor, delivered, current hospitalization SNOMED Code(s): 954158068 Code(s): O62.2 - OTHER UTERINE INERTIA Status: Acute Current Visit: Yes - Problem List Review Problem List Initiated/Reviewed/Updated: Yes - Assessment Assessment:: 22 y/o G1 now P1001 POD#2 from PLTCS at 40 6/7 wks gestation for FTP in 2nd stage - Plan Plan:: S/p PLTCS * Routine cares * Encourage breast feeding, will Rx breast pump for concerns of milk supply * Discharge home today
--- NOTE | 2017-09-16 07:29 | PCM.DCSUM1 ---
Discharge Summary - Discharge Data Discharge Date: 09/16/17 Discharge Disposition: Home, Self-Care 01 Condition: Good - Discharge Diagnosis/Problem(s) (1) S/P SNOMED Code(s): 760751936, 828252100 ICD Code: Z98.891 - HISTORY OF UTERINE SCAR FROM PREVIOUS SURGERY Status: Acute Current Visit: Yes (2) 41 weeks gestation of SNOMED Code(s): 67654081 ICD Code: Z3A.41 - 41 WEEKS GESTATION OF Status: Acute Current Visit: Yes (3) Failure to progress in labor, delivered, current hospitalization SNOMED Code(s): 935710447 ICD Code: O62.2 - OTHER UTERINE INERTIA Status: Acute Current Visit: Yes - Patient Summary/Data Operative Procedure(s) Performed: Low segment transverse Complications: None Consults: None Recommended Follow-up Testing/Procedures: Follow up in 1-[address] Adams for incision check Hospital Course: Patient admitted at 40 4/7 wks for post dates induction. Never able to progress past 7 cm and so was taken for PLTCS. Procedure was uncomplicated. See operative note for full details. She did well and was discharged home on PPD#2 - Patient Instructions Diet: Regular Diet as Tolerated Activity: No Lifting Over 10 Pounds Driving: Do Not Drive (While taking narcotics ) Showering/Bathing: May Shower, No Tub Bathing/Swimming Wound/Incision Care: Keep Operative Site/Wound Site Clean and Dry Notify Provider of: Fever, Increased Pain, Swelling and Redness, Drainage, Nausea and/or Vomiting - Discharge Plan Prescriptions/Med Rec: Acetaminophen/oxyCODONE [Percocet 325-5 MG] 2 tab PO Q4H PRN #25 tablet PRN Reason: Pain (Moderate 4-6) Home Medications: Home Meds Acetaminophen/oxyCODONE [Percocet 325-5 MG] 2 tab PO Q4H PRN #25 tablet [Rx] Docusate Sodium [Colace] 100 mg PO Q12H PRN cap 09/16/17 [Rx] Referrals: Martina Tenorio MD [Physician] - - Discharge Summary/Plan Comment DC Time >30 min.: No - Patient Data Vitals - Most Recent: Last Vital Signs Temp 36.7 C 09/16/17 02:46 Pulse 88 09/16/17 02:46 Resp 1 L 09/16/17 02:46 BP 131/77 09/16/17 02:46 Pulse Ox 98 09/16/17 02:46 Weight - Most Recent: 108.409 kg Med Orders - Current: Current Medications Acetaminophen (Tylenol) 650 mg PO Q4H PRN PRN Reason: mild pain or fever Diphenhydramine HCl (Benadryl) 25 mg IVPUSH Q6H PRN PRN Reason: Itching or Nausea Docusate Sodium (Colace) 100 mg PO Q12H PRN PRN Reason: Constipation Last Admin: 09/15/17 23:04 Dose: 100 mg Emollient Ointment (Lansinoh Hpa) 0 gm TOP ASDIRECTED PRN PRN Reason: Sore Nipples Last Admin: 09/14/17 22:17 Dose: 7 gram Ephedrine Sulfate (Ephedrine Sulfate) 5 mg IVPUSH SEECOMMENT PRN PRN Reason: Other Ibuprofen (Motrin) 600 mg PO Q6H PRN PRN Reason: mild pain or fever Last Admin: 09/15/17 17:54 Dose: 600 mg Naloxone HCl (Narcan) 0.1 mg IVPUSH SEECOMMENT PRN PRN Reason: Respiratory Depression Ondansetron HCl (Zofran) 4 mg IV Q4H PRN PRN Reason: Nausea/Vomiting Oxycodone/Acetaminophen (Percocet 325-5 Mg) 2 tab PO Q4H PRN PRN Reason: Pain (moderate 4-6) Last Admin: 09/16/17 02:42 Dose: 2 tab Simethicone (Simethicone) 160 mg PO QID [facility] Last Admin: 09/15/17 23:04 Dose: 160 mg Sodium Chloride (Saline Flush) 10 ml FLUSH ASDIRECTED PRN PRN Reason: Keep Vein Open Witch Mari (Tucks) 1 pad TOP ASDIRECTED PRN PRN Reason: Perineal Comfort Measure Discontinued Medications Bupivacaine HCl (Marcaine 0.5%) Confirm Administered Dose 30 ml .ROUTE .STK-MED ONE Stop: 09/13/17 23:43 Last Admin: 09/14/17 00:05 Dose: 20 ml Bupivacaine HCl (Sensorcaine-Mpf 0.25%) 10 ml .ROUTE .STK-MED ONE Stop: 09/14/17 01:01 Cefazolin Sodium (Ancef) Confirm Administered Dose 2 gm .ROUTE .STK-MED ONE Stop: 09/13/17 23:38 Citric Acid/Sodium Citrate (Bicitra Solution) 30 ml PO ONETIME ONE Stop: 09/13/17 23:28 Last Admin: 09/13/17 23:45 Dose: 30 ml Citric Acid/Sodium Citrate (Bicitra Solution) Confirm Administered Dose 30 ml .ROUTE .STK-MED ONE Stop: 09/13/17 23:47 Last Admin: 09/14/17 05:11 Dose: Not Given Diphenhydramine HCl (Benadryl) 25 mg IVPUSH Q6H PRN PRN Reason: Itching Ephedrine Sulfate (Ephedrine Sulfate) 5 mg IVPUSH ASDIRECTED PRN PRN Reason: HYPOTENTSION Ephedrine Sulfate (Ephedrine In Ns) Confirm Administered Dose 25 mg [facility] Stop: 09/14/17 00:17 Esmolol HCl (Esmolol) Confirm Administered Dose 100 mg .ROUTE .ST-MED ONE Stop: 09/14/17 00:24 Fentanyl (Sublimaze) 100 mcg EPIDUR Q3H PRN PRN Reason: Pain Last Admin: 09/13/17 12:30 Dose: 100 mcg Fentanyl (Sublimaze) Confirm Administered Dose 100 mcg .ROUTE .ST-MED ONE Stop: 09/14/17 00:20 Fentanyl/Bupivacaine HCl (Fentanyl/Bupivacaine/Ns 2 Mcg-0.125% 100 Ml) 100 ml EPIDUR ASDIRECTED [facility] Last Admin: 09/13/17 12:31 Dose: 100 ml Lactated Ringer's (Ringers, Lactated) 1,000 mls @ 40 mls/hr IV ASDIRECTED [facility] Last Admin: 09/14/17 05:05 Dose: 500 mls/hr Oxytocin/Lactated Ringer's (Pitocin In Lr 10 Units/1,000 Ml) 10 unit in 1,000 mls @ 12 mls/hr IV TITRATE [facility]; Protocol Oxytocin 20 unit/ Lactated (Ringer's) 1,002 mls @ 6.01 mls/hr IV TITRATE [facility]; Protocol Last Titration: 09/13/17 23:25 Dose: 0 munits/min, 0 mls/hr Oxytocin/Lactated Ringer's (Pitocin In Lr 20 Units/1,000 Ml) Confirm Administered Dose 20 unit in 1,000 mls @ as directed IV .K-MED ONE Stop: 09/13/17 02:08 Last Admin: 09/13/17 02:22 Dose: 2 mls/hr Cefazolin Sodium/Dextrose 2 gm (/ Premix) 50 mls @ 100 mls/hr IV ONETIME ONE Stop: 09/13/17 23:29 Last Admin: 09/15/17 10:33 Dose: 100 mls/hr Lactated Ringer's (Ringers, Lactated) 1,000 mls @ 125 mls/hr IV ASDIRECTED [facility] Last Admin: 09/14/17 01:50 Dose: 125 mls/hr Oxytocin/Lactated Ringer's (Pitocin In Lr 10 Units/1,000 Ml) 10 unit in 1,000 mls @ 100 mls/hr IV ASDIRECTED [facility] Lactated Ringer's (Ringers, Lactated) Confirm Administered Dose 1,000 mls @ as directed .ROUTE [facility] Stop: 09/14/17 00:08 Lactated Ringer's (Ringers, Lactated) Confirm Administered Dose 1,000 mls @ as directed .ROUTE [facility] Stop: 09/14/17 00:08 Dextrose/Lactated Ringer's (Dextrose 5%-Lactated Ringers) 1,000 mls @ 125 mls/ hr IV ASDIRECTED [facility] Stop: 09/14/17 11:07 Last Admin: 09/14/17 05:06 Dose: 125 mls/hr Ketorolac Tromethamine (Toradol) Confirm Administered Dose 30 mg .ROUTE [facility] Stop: 09/14/17 00:34 Ketorolac Tromethamine (Toradol) 30 mg IVPUSH Q6H [facility] Stop: 09/14/17 18:01 Last Admin: 09/14/17 18:49 Dose: 30 mg Lidocaine/Epinephrine (Xylocaine-Mpf 2%-Epi 1:200,000) Confirm Administered Dose 20 ml .ROUTE .K-MED ONE Stop: 09/13/17 23:41 Metoclopramide HCl (Reglan) 10 mg IVPUSH ONETIME ONE Stop: 09/13/17 23:28 Last Admin: 09/13/17 23:45 Dose: 10 mg Metoclopramide HCl (Reglan) Confirm Administered Dose 10 mg .ROUTE .STK-MED ONE Stop: 09/13/17 23:47 Last Admin: 09/14/17 05:10 Dose: Not Given Misoprostol (Cytotec) 25 mcg VAG Q3H [facility] Last Admin: 09/13/17 09:18 Dose: Not Given Morphine Sulfate (Duramorph Pf) Confirm Administered Dose 10 mg .ROUTE .STK-MED ONE Stop: 09/13/17 23:39 Oxytocin (Pitocin) Confirm Administered Dose 10 unit .ROUTE .STK-MED ONE Stop: 09/14/17 00:08 Phenylephrine HCl (Alverto-Synephrine) Confirm Administered Dose 10 mg .ROUTE .STK- MED ONE Stop: 09/13/17 23:38 Phenylephrine HCl (Phenylephrine In Ns 100 Mcg/Ml) Confirm Administered Dose 1 mg .ROUTE .STK-MED ONE Stop: 09/14/17 00:19 Sodium Chloride (Saline Flush) 10 ml FLUSH ASDIRECTED PRN PRN Reason: Keep Vein Open Sodium Chloride (Saline Flush) 10 ml FLUSH ASDIRECTED PRN PRN Reason: Keep Vein Open
[2017-09-16] MEDS: Ibuprofen 600 MG Tab PO PRN (07:34)
[2017-09-16] MEDS: Simethicone 80 MG Tab.Chew PO SCH (09:28)
== END 2017-09-16 12:15 | disposition home or self-care (01) | DRG 765 ==
LOC: JD.OB 00:11 → UNDOADMOB 20:17 → JD.OB 20:17 → OBSVTOIN 09-14 00:11
PROVIDERS: ADMIT Obstetrics & Gynecology; ATTEND Obstetrics & Gynecology
PROC: 10D00Z1 Extraction of Products of Conception, Low, Open Approach (ICD-10-PCS; principal; 2017-09-14)
DX: O62.2 Other uterine inertia (principal); O75.3 Other infection during labor; O48.0 Post-term pregnancy; Z3A.41 41 weeks gestation of pregnancy; Z37.0 Single live birth; B96.20 Unspecified Escherichia coli [E. coli] as the cause of diseases classified elsewhere; Z87.891 Personal history of nicotine dependence
CPT/HCPCS: 36415; 51702; 59025; 85025; 86592; 86850; 86900; 86901; 94762; A9270-GY; J0690; J1885; J2270; J2370; J2590; J2765; J3010; J7042; J7050; J7120